=== PATIENT | female | born 1965 | race Caucasian/White ===

== ENCOUNTER 2016-11-21 08:33 | Inpatient (IN) | payer BC ==
[~2016-11-21] VITALS: Ht 165.1 cm; Wt 62.0 kg
--- NOTE | 2016-11-21 08:43 | NUR ---
TO TREATMENT AREA, AMBULATORY WITH STEADY GAIT C/O GENERALIZED WEAKNESS X A COUPLE OF DAYS. AWAITING DR WELSH.
--- NOTE | 2016-11-21 09:18 | NUR ---
MEDICATED PT ORDERED, SEE MAR. WILL MONITOR FOR ADVERSE REACTIONS
[2016-11-21 09:22] LABS: UA SPECIFIC GRAVITY >=1.030 (1.005-1.035); microscopic required? YES; urine erythrocyte 2+ (NEGATIVE)
[2016-11-21 09:23] LABS: BASOPHIL % 0.3 % (0-2); PLATELET COUNT 246 x10^3mcL (130-400); RED CELL DISTRIBUTION WIDTH 13.6 % (11.5-14.5)
[2016-11-21 09:29] LABS: CALCIUM 8.9 mg/dL (8.5-10.1); CARBON DIOXIDE 21.6 mmol/L (21-32); CHLORIDE SERUM 101 mmol/L (98-107); CREATININE SERUM 0.6 mg/dL (0.6-1.0); GFR1 > 60 mL/min; GLUCOSE SERUM 100 mg/dL (74-106); POTASSIUM SERUM 3.7 mmol/L (3.5-5.1); SODIUM SERUM 134 mmol/L (136-145)
[2016-11-21 09:42] LABS: ALKALINE PHOSPHATASE 373 U/L (46-116); ALT/SGPT 37 U/L (14-59); AST/SGOT 27 U/L (15-37); TOTAL PROTEIN, SERUM 7.4 g/dL (6.4-8.2)
[2016-11-21 09:43] LABS: T4(THYROXINE) 20.8 ug/dL (4.7-13.3)
--- NOTE | 2016-11-21 09:49 | NUR ---
ALL TEST RESULTS COMPLETE, PATIENT READY FOR MD RE-EVALUATION.
--- NOTE | 2016-11-21 10:32 | NUR ---
[employer] INTERPRETER AT BEDSIDE
[2016-11-21 10:43] LABS: AMPHETAMINE QUAL UR NONE DETECTED (NEG <=1000)
[2016-11-21] MEDS ORDERED: PROPRANOLOL HCL10 MG PO (10:54)
[2016-11-21] MEDS ORDERED: METHIMAZOLE10 MG PO (10:55)
--- NOTE | 2016-11-21 11:00 | NUR ---
REPORT GIVEN TO PAKO.
--- NOTE | 2016-11-21 12:10 | NUR ---
RECEIVED PT FROM ER STAFF. PT AMBULATED FROM RDUPONT TO BED. STEADY GAIT. PT ABLE TO LET NEEDS KNOWN. DENIES ANY PAIN AT MOMENT. TELE #8 SINUS TACH ON MONITOR HR: 112. CLEAR BREATH SOUNDS THROUGHOUT. DENIES SOB. PALPABLE PULSES +2 TO ALL EXTREMITIES. DENIES NUMBNESS AND TINGLING. REPORTS DIARRHEA ON LAST BM. BOWLE SOUNDS ACTIVE. REPORTS VOIDS WITHOUT DISCOMFORT. SKIN INTACT. BED IN LOWEST POSITION, CALL LIGHT WITHIN REACH.
[2016-11-21 12:16] VITALS: BP 127/68
[2016-11-21 12:49] LABS: MAGNESIUM 1.8 mg/dL (1.8-2.4); PHOSPHOROUS 4.7 mg/dL (2.5-4.9)
[2016-11-21 12:51] LABS: CHOLESTEROL/HDL RATIO 2.5
[2016-11-21 13:54] VITALS: BP 127/68
[2016-11-21 14:32] VITALS: BP 117/61
--- NOTE | 2016-11-21 14:38 | NUR ---
ADMINISTERED TYLENOL AND IMPLEMENTED COOLING MEASURES FOR TEMP: 100.5 REASSESSED TEMP: 98.2 PT REPORTS COMFORT. CALL LIGHT WITHIN REACH.
[2016-11-21 16:42] VITALS: BP 104/53
--- NOTE | 2016-11-21 17:15 | NUR ---
PASSED AFTERNOON MEDS. PT TOLERATED WELL. PT DENIES ANY PAIN AT MOMENT, DENIES NAUSEA. CALL LIGHT WITHIN REACH. AT BEDSIDE.
--- NOTE | 2016-11-21 19:40 | NUR ---
RECD PT AMBULATING TO RESTROOM. ASSESSED PT AFTER SHE USED THE RESTROOM. ASSESSED PT LAYING DOWN IN BED WITH FAMILY AT [facility]. PT AAO X4. LUNG SOUNDS CLEAR TO AUSCULTATION. PT ON TELE #8 W/ NSR. BOWEL SOUNDS ACTIVE, ABD SOFT AND FLAT, NONTENDER. PT STATED LAST BM TODAY (11/21/16) WAS DIARRHEA. NO PAIN/DIFFICULTY URINATING. IV TO LAC RUNNING NS @ 100 ML/HR AND IV PATENT. PULSES PRESENT AND NO EDEMA NOTED IN BLE. PT HAS NO C/O PAIN AT THIS TIME. BED IN LOW POSITION, CALL LIGHT WITHIN REACH. WILL CONTINUE TO MONITOR.
--- NOTE | 2016-11-21 20:25 | NUR ---
DR RICH IS HERE AND EVAL PT, PER DR RICH HOLD ON WITH HEPARIN DRIP AT THIS TIME.
[2016-11-21 21:00] VITALS: BP 114/62
--- NOTE | 2016-11-21 22:50 | NUR ---
PT SLEEPING COMFORTABLY AT THIS TIME IN SUPINE POSITION. NO SIGNS OF DISTRESS NOTED. WILL CONTINUE TO MONITOR.
--- NOTE | 2016-11-22 01:34 | NUR ---
PT SLEEPING COMFORTABLY. NO SIGNS OF DISTRESS NOTED. WILL CONTINUE TO MONITOR.
--- NOTE | 2016-11-22 04:10 | NUR ---
PT AWAKE AT THIS TIME ON HER CELL PHONE. NO C/O OF PAIN AT THIST ADRIANA. PER PT, SHE HAD DIARRHEA X1 IN THE MIDDLE OF THE NIGHT. NO DISTRESS NOTED AT THIS TIME. BED IN LOW POSITION, CALL LIGHT WITHIN REACH. WILL CONTINUE TO MONITOR.
[2016-11-22 05:45] VITALS: BP 103/69
[2016-11-22 05:48] VITALS: BP 104/59
[2016-11-22 06:01] LABS: BASOPHIL % 0.2 % (0-2); PLATELET COUNT 205 x10^3mcL (130-400); RED CELL DISTRIBUTION WIDTH 13.6 % (11.5-14.5)
--- NOTE | 2016-11-22 06:05 | NUR ---
PT SLEPT WELL THROUGH THE EVENING. PT C/O NO PAIN THROUGHOUT NIGHT. PT HAD 1 DIARRHEA BM IN THE MIDDLE OF THE NIGHT. PT TOLERATED MEDS WELL. BED IN LOW POSITION, CALL LIGHT WITHIN REACH.
[2016-11-22 06:15] LABS: CALCIUM 8.8 mg/dL (8.5-10.1); CARBON DIOXIDE 23.5 mmol/L (21-32); CHLORIDE SERUM 111 mmol/L (98-107); CREATININE SERUM 0.3 mg/dL (0.6-1.0); GFR1 > 60 mL/min; GLUCOSE SERUM 130 mg/dL (74-106); MAGNESIUM 1.9 mg/dL (1.8-2.4); PHOSPHOROUS 3.4 mg/dL (2.5-4.9); POTASSIUM SERUM 3.2 mmol/L (3.5-5.1); SODIUM SERUM 142 mmol/L (136-145)
--- NOTE | 2016-11-22 07:23 | NUR ---
REPORT GIVEN TO DONNA AMAYA. ALL CARES ENDORSED.
--- NOTE | 2016-11-22 07:45 | NUR ---
A/O X4. CLEAR SPEECH. FOLLOW COMMANDS. ON TEL 26 HR 78. RADIAL AND PEDAL PULSES PALPABLE. NO EDEMA OR SWELLING NOTED. <3 SECS CAP REFILL. SCDS IN PLACED. ON RA SAT 95%. BREATHING EVEN AND UNLABORED. CLEAR LUNG SOUNDS. Pt HAVING LOOSE BM. VOIDING ADEQUATELY. AMBULATORY WITH STEADY GAIT. DENIES ANY BODY ACHES. IV SITE INTACT ON LAC. NS INFUSING WELL AT 100ML/HR. WILL CONTINUE TO MONITOR. CALL LIGHT WITHIN REACH.
[2016-11-22 07:57] VITALS: BP 123/61
--- NOTE | 2016-11-22 08:13 | NUR ---
TOOK MEDS WITHOUT DIFFICULTY. NO DISTRESS NOTED AT THIS TIME. WILL CONTINUE TO MONITOR.
--- NOTE | 2016-11-22 09:43 | NUR ---
Pt RESTING COMFORTABLY. FAMILY AT BEDSIDE.
--- NOTE | 2016-11-22 10:03 | NUR ---
Initial Nutrition Assessment- Dx: diarrhea, body aches, fever, acute thyroid storm. PMHx: Grave's disease (dx December 2015), Hyperthyroidism. PSHx: None noted Labs: (11/22/16) K 3.2 L, Glucose 130 H, Cr 0.3 L, H/H 11.4/34. Meds: Colace, D50%/water, humulin, morphine sulfate, norco Diet: CCHO 60 gm PO Intake: 50% x 1 meal Ht: 65 in (5'5") Wt: 62 kg (136 pounds) BMI: 22.7 kg/m2, normal. IBW: 125 pounds (56.8 kg) %IBW: 108% UBW: 129 pounds Age: 51 Food Allergies: No known food allergies Skin: Perez 21 Edema: none noted GI: 1 x 11/22/16, 1 x 11/21/16l; diarrhea Pt admitted with dx: acute thyroid storm, Grave's disease, elevated troponin, VMN, moderate malnutrition, hyponatremia. Pt seen awake in bed, with at beside. Pt in good spirits, reports feeling much better today, diarrhea has improved with few episodes per pt report. States she follows a dairy-free, gluten-free, no fish diet due to thyroid issues; dietary made aware of special diet preferences. Nursing Trigger for diarrhea Problem with: N: no V: no D: pt reports yes but is less than before C: no Problems with: Chewing: no Swallowing: no Current appetite: okay; better prior to admission Recent wt change: no %wt change: N/A Vitamin/Supplement use: no Special diet at home: gluten-free, dairy-free, no fish Physical activity: inactive right now, used to run and go to the gym regularly prior Education: Patient notified of current diet order (CCHO 60gm), given description of restrictions, patient denies further diet education. Estimated Nutritional Needs Based on actual body weight (62 kg) Energy: 2632-5118 kcal/d (25-30 kca/kg for adult maintenance) Protein: 50-62 gm/d (0.8-1 gm/kg for adult maintenance) Fluid: 1560-3275 ml/d (1 ml/kcal) or per doctor Nutrition Diagnosis 1. Altered GI function related to pathophysiological causes as evidenced by multiple episodes of diarrhea. Intervention (RDN Recommendations) 1. Continue on CCHO 60gm diet as tolerated. 2. Consult RDN prn. Monitor/Evaluate Goal: Intake via PO to meet least 75% of estimated needs. Monitor: PO intakes, Labs, GI function F/U in 5-7 days as low risk (11/27-)
--- NOTE | 2016-11-22 11:24 | NUR ---
RESTING COMFORTABLY. NO DISTRESS NOTED.
--- NOTE | 2016-11-22 12:30 | NUR ---
Pt RESTING COMFORTABLY. USING CELLULAR DEVICE.
--- NOTE | 2016-11-22 14:35 | NUR ---
FAMILY AT BEDSIDE.
[2016-11-22 17:07] VITALS: BP 151/68
--- NOTE | 2016-11-22 18:07 | NUR ---
RESTING COMFORTABLY. FAMILY AT BEDSIDE.
--- NOTE | 2016-11-22 19:05 | NUR ---
RECEIVED REPORT FROM DONNA NELSON, ALL QUESTIONS ADDRESSED, WILL ENDORSE CARE. PT LYING IN BED RESTING, NO S/S OF DISTRESS, TALKING TO FAMILY. AOX4, WILL CONTINUE TO MONITOR.
[2016-11-22 21:43] VITALS: BP 131/106
--- NOTE | 2016-11-22 22:06 | NUR ---
DR HOLLY NOTIFIED ABOUT BP 131/106, WILL CONTINUE TO MONITOR
--- NOTE | 2016-11-22 22:15 | NUR ---
PT RECEIVED FROM PHUONG. PT IN STABLE CONDITION, NO SIGNS OF DISTRESS OBSERVED, PT DENIES PAIN AT THIS TIME. PT ACCIDENTALLY PULLED OUT IV, CATHETER INTACT. REATTEMPTED TO REINSERT NEW IV, PT REFUSES TO HAVE NEW IV INSERTED, STATES "IT'S TOO PAINFUL." WILL CONTINUE TO MONITOR.
--- NOTE | 2016-11-23 02:00 | NUR ---
PT RESTING AT THIS TIME, STATES SHE "CAN'T GO TO SLEEP, EXCITED TO GO HOME." NO RESP DISTRESS OBSERVED. WILL CONTINUE TO MONITOR.
--- NOTE | 2016-11-23 04:35 | NUR ---
ONLY 3 TABS OF 50 MG AVAILABLE FOR PT'S 0400 DOSE OF PROPHYLTHIOURACIL ([address] HOLLY, OKAY TO ONLY GIVE 3 TABS AT THIS TIME.
[2016-11-23 05:44] VITALS: BP 135/71
--- NOTE | 2016-11-23 06:03 | NUR ---
PT RESTING AT THIS TIME. NO RESP DISTRESS OBSERVED. PT DENIES PAIN OR BODY ACHES. PT REPORTS NO BM AT THIS TIME. ALL NEEDS MET. WILL ENDORSE CARE TO AM NURSE.
--- NOTE | 2016-11-23 07:31 | NUR ---
A+OX4, NO RESPIRATORY DISTRESS, DENIES PAIN, NAUSEA, SOB, AND HEADACHE, TELE 8, NSR, PULSES MODERATE AND EQUAL PIETRO, NO EDEMA PRESENT, LUNG SOUNDS CLEAR, TOLERATING RA, BOWEL SOUNDS ACTIVE, PER NIGHT NURSE PT HAS DIARRHEA, VOIDING, MILD GEN WEAKNESS, AMBULATORY, SKIN INTACT, REFUSING IV ACCESS, K 3.2, CL 111, CR 0.3.
--- NOTE | 2016-11-23 08:41 | NUR ---
PT RESTING IN BED, NO RESPIRATORY DISTRESS NOTED, DENIES PAIN, NAUSEA, SOB, AND HEADACHE, AT BEDSIDE.
[2016-11-23 08:44] VITALS: BP 147/89
[2016-11-23 09:46] VITALS: BP 147/89
--- NOTE | 2016-11-23 10:12 | NUR ---
PT GIVEN DISCHARGE INFORMATION AND INSTRUCTIONS, VERBALIZED UNDERSTANDING. TELE REMOVED AND RETURNED TO [place] STATION, NO AMALIA TO REMOVE. PT OFF THE UNIT WITH ALL BELONGINGS VIA WHEELCHAIR ESCORTED BY [facility].
== END 2016-11-23 10:15 | disposition home or self-care (01) | DRG 643 ==
LOC: ED 08:33 → DU 09:54
PROVIDERS: Emergency Medicine; ADMIT Family Medicine
DX: E05.91 Thyrotoxicosis, unspecified with thyrotoxic crisis or storm (principal); N17.0 Acute kidney failure with tubular necrosis; E87.1 Hypo-osmolality and hyponatremia; N39.0 Urinary tract infection, site not specified; E44.0 Moderate protein-calorie malnutrition; E86.0 Dehydration; E11.9 Type 2 diabetes mellitus without complications; H05.20 Unspecified exophthalmos; Z68.22 Body mass index [BMI] 22.0-22.9, adult
CPT/HCPCS: 82962; 83880; J0696; J1720; J1800; J3010; J7030; Q0092